=== PATIENT | female | born 1955 | race Two or more races ===

== ENCOUNTER 2018-02-28 22:09 | Inpatient (IN) | payer SELFPAY ==
[~2018-02-28] VITALS: Ht 157.5 cm; Wt 64.0 kg
[2018-03-01] MEDS ORDERED: DEXT 10% WATER 1,000 ML IV ONE (00:24)
[2018-03-01 00:58] LABS: BASOPHILS % 0.3 % (0.0-2.0); EOSINOPHILS % 0.7 % (0.0-5.0); HEMATOCRIT. 40.2 % (36.0-48.0); HEMOGLOBIN. 13.6 g/dL (12.0-16.0); LYMPHOCYTES % 14.6 % (20.0-50.0); MEAN CORPUSCULAR HEMOGLOBIN 29.7 pg (28.0-32.0); MEAN PLATELET VOLUME 7.8 fl (7.4-10.4); MONOCYTES % 3.9 % (2.0-8.0); NEUTROPHILS % 80.5 % (40.0-76.0); PLATELET 270 x1000/uL (130-400); RED BLOOD CELL COUNT 4.56 mill/uL (4.2-5.4); RED CELL DISTRIBUTION WIDTH 13.9 % (11.6-14.6)
[2018-03-01 01:03] LABS: CHLORIDE 108 mEq/L (98-107)
[2018-03-01 01:06] LABS: PROTHROMBIN TIME 10.6 sec (9.4-11.6)
[2018-03-01 01:08] LABS: ETHANOL BLOOD < 10 mg/dL
[2018-03-01 01:11] LABS: CREATINE KINASE 30 IU/L (26-192)
[2018-03-01] MEDS ORDERED: HYDROCODONE/ACETAMINOPHEN 5/325MG TABLET PO PRN (01:30)
[2018-03-01] MEDS ORDERED: ACETAMINOPHEN 650MG SUPP PR PRN (01:30)
[2018-03-01] MEDS ORDERED: ACETAMINOPHEN 325MG TABLET PO PRN (01:30)
[2018-03-01] MEDS ORDERED: DEXTROSE 50% WATER 50ML SYRINGE IV PRN (01:30)
[2018-03-01] MEDS ORDERED: ACETAMINOPHEN 650MG/20.3ML UDC GT PRN (01:30)
[2018-03-01] MEDS ORDERED: GUAIFENESIN 200MG/10ML SUGAR FREE UDC PO PRN (01:30)
[2018-03-01] MEDS ORDERED: NA PHOS,M-B/NA PHOS,DI-BA ENEMA 118ML PR PRN (01:30)
[2018-03-01] MEDS ORDERED: MAGNESIUM/ALUMINUM HYDROXIDE/SIMETHICONE 30ML UDC PO PRN (01:30)
[2018-03-01] MEDS ORDERED: ONDANSETRON HCL 4MG/2ML VIAL IV PRN (01:30)
[2018-03-01] MEDS ORDERED: IPRATROPIUM/ALBUTEROL 0.5-3(2.5)MG/3ML NEB INH PRN (01:30)
[2018-03-01] MEDS ORDERED: DIPHENHYDRAMINE 50MG/ML VIAL IV PRN (01:30)
[2018-03-01] MEDS ORDERED: CLONIDINE 0.1MG TABLET PO PRN (01:30)
[2018-03-01] MEDS ORDERED: DOCUSATE SODIUM 100MG CAPSULE PO PRN (01:30)
[2018-03-01] MEDS ORDERED: DEXT 5%/0.45% NACL 1000ML 1,000 ML IV SCH (02:30)
[2018-03-01 02:49] LABS: CLARITY URINE CLEAR (CLEAR); COLOR URINE YELLOW (YELLOW); KETONES URINE NEGATIVE (NEGATIVE); LEUKOCYTE ESTERASE URINE 2+ (NEGATIVE); NITRITE URINE NEGATIVE (NEGATIVE); OCCULT BLOOD URINE NEGATIVE (NEGATIVE); PROTEIN URINE NEGATIVE (NEGATIVE); SPECIFIC GRAVITY URINE 1.011 (1.005-1.030); UROBILINOGEN URINE 0.2 E.U./dL (0.2-1.0)
[2018-03-01 03:04] LABS: *AMPHETAMINES SCREEN URINE NEGATIVE (NEGATIVE); *BARBITURATES SCREEN URINE NEGATIVE (NEGATIVE)
[2018-03-01 03:05] LABS: *BENZODIAZEPINES SCREEN URINE NEGATIVE (NEGATIVE); *COCAINE SCREEN URINE NEGATIVE (NEGATIVE); CANNABINOID URINE SCREEN NEGATIVE (NEGATIVE); METHADONE URINE SCREEN NEGATIVE (NEGATIVE); PHENCYCLIDINE URINE SCREEN NEGATIVE (NEGATIVE)
[2018-03-01 03:06] LABS: OPIATES URINE SCREEN NEGATIVE (NEGATIVE)
[2018-03-01] MEDS: SODIUM CHLORIDE 0.9% INJ 3ML FLUSH IVF SCH ×3 (06:00→20:39)
[2018-03-01 10:00] VITALS: BP 115/55
[2018-03-01] MEDS ORDERED: ASPI-1159 PO (10:37)
[2018-03-01] MEDS ORDERED: [UNRECOGNIZED DRUG - CODE] MT (10:37)
[2018-03-01] MEDS ORDERED: LOSA25TA12 MT (10:37)
[2018-03-01] MEDS ORDERED: PRAV40TA58 MT (10:37)
[2018-03-01 12:00] VITALS: BP 131/59
[2018-03-01] MEDS: BLOOD SUGAR DIAGNOSTIC STRIP TEST SCH ×3 (12:10→20:42)
[2018-03-01 16:00] VITALS: BP 117/59
[2018-03-01 20:00] VITALS: BP 105/66
[2018-03-02] VITALS: BP 125/93
[2018-03-02 04:00] VITALS: BP 126/68
[2018-03-02] MEDS: SODIUM CHLORIDE 0.9% INJ 3ML FLUSH IVF SCH (05:46)
[2018-03-02] MEDS: BLOOD SUGAR DIAGNOSTIC STRIP TEST SCH ×2 (05:48→11:44)
[2018-03-02 08:00] VITALS: BP 109/61
[2018-03-02 08:20] LABS: BASOPHILS % 0.9 % (0.0-2.0); EOSINOPHILS % 3.7 % (0.0-5.0); HEMOGLOBIN. 14.6 g/dL (12.0-16.0); MEAN CORPUSCULAR HEMOGLOBIN 30.2 pg (28.0-32.0); MEAN CORPUSCULAR VOLUME 88.8 fL (81.0-99.0); MEAN PLATELET VOLUME 8.1 fl (7.4-10.4); MONOCYTES % 7.5 % (2.0-8.0); NEUTROPHILS % 64.9 % (40.0-76.0); PLATELET 315 x1000/uL (130-400); RED BLOOD CELL COUNT 4.84 mill/uL (4.2-5.4); RED CELL DISTRIBUTION WIDTH 14.3 % (11.6-14.6)
[2018-03-02 09:06] LABS: CHLORIDE 107 mEq/L (98-107)
[2018-03-02 09:16] LABS: LDL CHOLESTEROL 112 mg/dL (5-100)
[2018-03-02 09:21] LABS: HDL CHOLESTEROL 43 mg/dL (40-59)
[2018-03-02 12:00] VITALS: BP 115/64
[2018-03-02 15:35] VITALS: BP 116/64
== END 2018-03-02 16:15 | disposition home or self-care (01) | DRG 420 ==
LOC: ER 22:09 → 8WST 03-01 01:01 → EDBEDREQ 03-01 01:35 → ENRESERV 03-01 07:11 → 8WST 03-01 10:30
PROVIDERS: ADMIT Family Medicine; ATTEND Family Medicine
DX: E11.649 Type 2 diabetes mellitus with hypoglycemia without coma (principal); G93.41 Metabolic encephalopathy; E66.9 Obesity, unspecified; I10 Essential (primary) hypertension; Z87.440 Personal history of urinary (tract) infections; Z68.25 Body mass index [BMI] 25.0-25.9, adult
CPT/HCPCS: 36415; 70450; 71045; 80053; 80061; 80305; 81003; 82550; 82962; 83605; 83690; 83880; 84484; 85025; 85610; 93005; G0482